=== PATIENT | male | born 1935 | race Caucasian/White ===

== ENCOUNTER → 2019-03-24 | Outpatient (CLI) | payer OTHER, BC ==
[2016-01-18 13:00] VITALS: BP 93/53
[~2019-03-24] MED LIST: ALLO300T PO; ATOR20TA58 PO; BUPIVACAINE MPF 0.25% 10 ML VIAL. ONE; CHOL200044 PO; FINA5TAB4 PO; FOLI1TAB16 PO; GLIP2.5T4 PO; LEVO100T5 PO; MELA3TAB2 PO; NAPR-514 PO; NAPR220C4 PO; RAMI10CA53 PO; methylPREDNISolone ACETATE 40 MG/ML VIAL. ONE
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
== END ==
LOC: PNCL 09:41
PROVIDERS: ATTEND Anesthesiology
DX: M79.18 Myalgia, other site (principal); M51.34 Other intervertebral disc degeneration, thoracic region; E11.9 Type 2 diabetes mellitus without complications; I10 Essential (primary) hypertension; Z87.891 Personal history of nicotine dependence; Z98.42 Cataract extraction status, left eye; Z98.41 Cataract extraction status, right eye; Z98.890 Other specified postprocedural states; Z88.0 Allergy status to penicillin; Z96.1 Presence of intraocular lens; Z79.84 Long term (current) use of oral hypoglycemic drugs
CPT/HCPCS: 20553; J1030; J3490

== ENCOUNTER → 2019-04-08 | Outpatient (CLI) | payer OTHER, BC ==
[2016-01-18 13:00] VITALS: BP 93/53
[~2019-04-08] MED LIST changes: +TRAM50TA PO
--- NOTE | 2019-04-08 09:12 | PAIN ---
DATE OF SERVICE: 04/08/2019 DIAGNOSES: 1. Myofascial pain. 2. Thoracic degenerative disk disease. HISTORY OF PRESENT ILLNESS: The patient is an 83-year-old male who returns for followup status post trigger point injections, last seen on 03/24/2019. The patient did very well with about 80% improvement until the last week. The pain again returned, he reports upper back, neck and shoulders, more on the right than the left, also in the mid back and low back, more on the left side and the mid low back. The patient reports pain is 8 on a scale of 10 at its worst over the past week, 7 on average, 2 at its least and is a 3 today. The patient reports sharp, constant, radiating, aching, worse with activity. Initially was increasing activity with greater ease and comfort, traveling with better greater ease, where he was bowling and been sleeping in bed until the last few days. He is back on his couch. The patient reports activity is aggravating the pain, but only over the past week or so. PHYSICAL EXAMINATION: VITAL SIGNS: Today, the patient's blood pressure 111/65, pulse 85, respirations 16, temperature is 98.0 degrees Fahrenheit, height 6 feet, weight 222 pounds. GENERAL: The patient is awake, alert, oriented, appropriate, very pleasant demeanor. HEENT: Head is normocephalic, atraumatic. Extraocular movements are intact and symmetrical. The patient wears eye glasses. Oral cavity: Mucous membranes moist and pink. Dentition is intact. NECK: Shows anterior throat supple without palpable lymphadenopathy noted. Swallow reflex symmetrical. CHEST: Shows normal on inspection. Breath sounds are clear to auscultation bilaterally. HEART: Shows S1, S2 clear. No murmurs auscultated. ABDOMEN: Soft, nontender, nondistended. No palpable organomegaly is noted. No rebound or guarding demonstrated. BACK: Shows spine grossly in the midline. Normal appearing thoracic kyphosis and some minor flattening of lumbar lordotic curvature. The patient's back shows moderate tenderness with palpation in the inferior cervical paraspinous musculature, superior medial trapezius, lateral trapezius on the right and the medial trapezius on the left, with very firm rope-like musculature consistent with trigger point areas of muscle in these areas, also into the right rhomboid as well as the thoracic paraspinous musculature, more on the right than the left, but present bilaterally and at the upper lumbar paraspinous musculature on the right side, very firm rope-like musculature as well without specific radiation, but very firm, very tender and very easily palpable and very uncomfortable with palpation bilaterally consistent with trigger point areas of musculature. EXTREMITIES: The patient's upper extremities show deep tendon reflexes 2+ in the biceps, triceps tendons. Motor exam is strong with matte cutter strength rated at 5/5, as is bicep and tricep flexion. Lower extremities show deep tendon reflexes 1+ in the patellar and tendo-calcaneus tendons. Motor exam is strong with 5/5 dorsiflexion and extension. Peripheral pulses are 2+ radial, 1+ posterior tibial. Options were discussed with the patient. The patient's old chart was reviewed as his current medication regimen updated. Current review of systems updated today as well. We will proceed with trigger point injections of the identified musculature. Risks were again discussed including, but not limited to bleeding, infection, possibility of intravascular injection sequelae, spread of local anesthetic and numbness, pneumothorax, side effects of steroid medication as well as poor results regarding pain control. The patient understands and wished to proceed. The patient will return to clinic in approximately 2 weeks for followup, was counseled on return appointment, activity level and side effects to be aware of. DIAGNOSIS: Myofascial pain. PROCEDURE: Trigger point injections, bilateral trapezius, bilateral rhomboid musculature, bilateral thoracic paraspinous musculature and bilateral lumbar paraspinous musculature under sterile prep and drape using local anesthetic. MEDICATION INJECTED: A total of 40 mg Depo-Medrol, plus 14 mL 0.25% bupivacaine after negative aspiration at each injection site. CONDITION AT DISCHARGE: Stable. The patient tolerated the procedure well and had no complications. ALBERT JEAN-BAPTISTE MD DR: SHAW/marsha JOB#: [id number] / [id number]
== END ==
LOC: PNCL 07:52
PROVIDERS: ATTEND Anesthesiology
DX: M79.18 Myalgia, other site (principal); M51.34 Other intervertebral disc degeneration, thoracic region
CPT/HCPCS: 20553; J1030; J3490

== ENCOUNTER 2019-04-28 12:40 | Inpatient (IN) | payer BC, MEDICARE ==
[~2019-04-28] VITALS: Ht 182.9 cm; Wt 94.1 kg
[~2019-04-28 12:40] MED LIST changes: -BUPIVACAINE MPF 0.25% 10 ML VIAL. ONE; -methylPREDNISolone ACETATE 40 MG/ML VIAL. ONE
[2019-04-28] MEDS ORDERED: IV NORMAL SALINE 1000ML BAG 1,000 ML IV ONE ×3 (13:00→15:30)
[2019-04-28 13:03] LABS: BASO # 0.1 x10^3/uL (0.0-0.2); BASO % 1 % (0-3); EOS # 0.3 x10^3/uL (0.0-0.7); EOS % 3 % (0-3); HEMATOCRIT 39.8 % (39.0-53.0); HEMOGLOBIN 13.2 g/dL (13.0-17.5); LYMPH % 32 % (24-48); MEAN CORPUSCULAR HEMOGLOBIN 34 pg (25-35); MEAN CORPUSCULAR HGB CONC 33 g/dL (31-37); MEAN CORPUSCULAR VOLUME 101 fL (79-100); MONO # 0.6 x10^3/uL (0.0-1.1); MONO % 7 % (0-9); NEUT # 5.3 x10^3/uL (1.8-7.7); NEUT % 57 % (31-73); PLATELET COUNT 165 x10^3/uL (140-400); RED BLOOD COUNT 3.93 x10^6/uL (4.30-5.70); WHITE BLOOD COUNT 9.3 x10^3/uL (4.0-11.0)
--- NOTE | 2019-04-28 13:07 | RAD ---
EXAM: Chest, single view. HISTORY: Chest pain. COMPARISON: None. FINDINGS: A single view of the chest is obtained. There is no infiltrate, pleural effusion or pneumothorax. The heart is normal in size. IMPRESSION: No acute pulmonary finding. Electronically signed by: Jodi Leung MD (04/28/2019 1:04 PM) [place] [id number]
[2019-04-28 13:10] LABS: PROTHROMBIN TIME PATIENT 16.5 SEC (11.7-14.0)
[2019-04-28 13:11] LABS: CALCIUM 8.5 mg/dL (8.5-10.1); CREATININE 1.7 mg/dL (0.7-1.3); GFR 38.6; POTASSIUM 4.1 mmol/L (3.5-5.1)
[2019-04-28 13:15] LABS: ALBUMIN 3.2 g/dL (3.4-5.0); MAGNESIUM 1.8 mg/dL (1.8-2.4); TOTAL BILIRUBIN 0.5 mg/dL (0.2-1.0); TOTAL PROTEIN 6.3 g/dL (6.4-8.2)
--- NOTE | 2019-04-28 13:32 | RAD ---
EXAM: Head and cervical spine CT without contrast. HISTORY: Syncope. TECHNIQUE: Computed tomographic images of the head and cervical spine were obtained without contrast. *One or more of the following individualized dose reduction techniques were utilized for this examination: 1. Automated exposure control. 2. Adjustment of the mA and/or kV according to patient size. 3. Use of iterative reconstruction technique. COMPARISON: None. FINDINGS: Head: There is no hemorrhage. There is no mass effect or midline shift. There is no hydrocephalus. There is mild age-appropriate cerebral volume loss. There is mild decreased attenuation within the cerebral white matter, likely due to chronic small vessel disease. There is a suspected chronic left lamina appreciable fracture. There is evidence of lens surgery. There is fluid within the inferior right mastoid air cells. No suspicious calvarial lesion is seen. 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 There is slightly calcified soft tissue pannus surrounding the odontoid. This contributes to mild central canal stenosis at this level. There is degenerative endplate remodeling with disc space narrowing, osteophytosis and facet arthropathy throughout the cervical an upper thoracic spine. No acute fracture is seen. There are surgical clips within the neck. There is a small amount of soft tissue gas within the anterior neck likely due to recent peripheral catheterization. The combination of disc bulges with disc protrusions or disc osteophyte complexes and facet and uncovertebral arthropathy results in mild central canal stenosis at C2-C3, moderate to severe right and mild to moderate left foraminal and moderate to severe central canal stenosis at C3-C4, moderate bilateral foraminal and moderate to severe central canal stenosis at C5-C6, and severe left foraminal and moderate central canal stenosis at C6-C7. IMPRESSION: 1. No acute intracranial finding. There are subtle areas of hypodensity within the cerebral white matter, likely due to chronic small vessel disease. 2. 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 The combination of this finding and surrounding pannus contributes to mild central canal stenosis at this level. No acute fracture is seen. 3. Severe multilevel degenerative change throughout the cervical spine, resulting in significant foraminal and central canal stenosis at the aforementioned levels. Electronically signed by: Jodi Leung MD (04/28/2019 1:30 PM) [place] [id number]
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
--- NOTE | 2019-04-28 13:44 | EKG ---
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
[2019-04-28] MEDS ORDERED: ONDANSETRON PF 4 MG/2 ML VIAL. IV PRN (14:00)
[2019-04-28] MEDS ORDERED: traMADol 50 MG TABLET PO PRN (15:30)
[2019-04-28] MEDS ORDERED: DEXTROSE 50% 25 GM / 50ML DISP.SYRIN. IV PRN (15:30)
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
[2019-04-28 15:57] LABS: CHOLESTEROL/HDL RATIO 3.2
[2019-04-28 16:55] VITALS: BP 151/93
[2019-04-28] MEDS: INSULIN LISPRO 300 UNITS/3 ML INSULN.PEN. SQ SCH (17:00)
--- NOTE | 2019-04-28 17:17 | CARD ---
MR#: [id number] Date of Study: 04/28/2019 Ordering Physician: PHYLLIS MEZA, Referring Physician: MATEO CALLAHAN, Tech: Becca Sorensen APPROVED REPORT EXAM: Two-dimensional and M-mode echocardiogram with Doppler and color Doppler. Other Information Quality : AverageHR: 102bpm INDICATION Atrial Fibrillation Chest Pain Syncope Elevated Troponin RISK FACTORS Hypertension Hyperlipidemia 2D DIMENSIONS RVDd3.7 (2.9-3.5cm)Left Atrium(2D)3.3 (1.6-4.0cm) IVSd1.3 (0.7-1.1cm)Aortic Root(2D)3.7 (2.0-3.7cm) LVDd5.0 (3.9-5.9cm)LVOT Diameter2.2 (1.8-2.4cm) PWd1.3 (0.7-1.1cm)LVDs3.6 (2.5-4.0cm) FS (%) 27.7 %SV63.5 ml LVEF(%)53.4 (>50%) Aortic Valve AoV Peak Armando.104.2cm/sAoV VTI17.5cm AO Peak GR.4.3mmHgLVOT VTI 10.11cm AO Mean GR.3mmHgAI P 1/2 [id number] Mitral Valve MV E Mlqukocr94.2cm/sMV DECEL CSAF925gi MV A Itytbubt58.6cm/sE/A Ratio0.6 TDI Lateral E' P. V6.18cm/sMedial E' P. V5.79cm/s E/Lateral E'6.8E/Medial E'7.3 Tricuspid Valve TR P. Rpisygcj422tq/sRAP [id number] TR Peak Gr.40wqDmPOVN12ynZb Pulmonary Vein S1 Wysxboyt14.8cm/sS2 Tmhrzfmu32.47cm/s D2 Tuigkjun93.5cm/sPVa [id number] LEFT VENTRICLE The left ventricle is normal size. There is mild concentric left ventricular hypertrophy. The left ve ntricular systolic function is normal. The ejection fraction is 55-60%. There is normal LV segmental wall motion. Transmitral Doppler flow pattern is Grade I-abnormal relaxation pattern. RIGHT VENTRICLE The right ventricle is borderline dilated. There is normal right ventricular wall thickness. Systolic function is borderline reduced. ATRIA The left atrium is borderline dilated. The right atrium size is normal. The interatrial septum is int act with no evidence for an atrial septal defect or patent foramen ovale as noted on 2-D or Doppler i maging. AORTIC VALVE The aortic valve is thickened but opens well. Doppler and Color Flow revealed trace to mild aortic re gurgitation. There is no significant aortic valvular stenosis. MITRAL VALVE The mitral valve is thickened but opens well. There is no evidence of mitral valve prolapse. There is no mitral valve stenosis. Doppler and Color-flow revealed trace mitral regurgitation. TRICUSPID VALVE The tricuspid valve is normal in structure and function. Doppler and Color Flow revealed trace tricus pid regurgitation with an estimated PAP of 41 mmHg. There is no tricuspid valve stenosis. PULMONIC VALVE The pulmonary valve is normal in structure and function. Doppler and Color Flow revealed trace to mil d pulmonic valvular regurgitation. GREAT VESSELS The aortic root is normal in size. The IVC is dilated and collapses >50% with inspiration. PERICARDIAL EFFUSION There is small left pleural effusion. There is no evidence of significant pericardial effusion. Critical Notification Critical Value: No <Conclusion> The left ventricle is normal size. The left ventricular systolic function is normal. The ejection fraction is 55-60%. There is mild concentric left ventricular hypertrophy. There is no significant aortic valvular stenosis. Doppler and Color Flow revealed trace to mild aortic regurgitation. Doppler and Color-flow revealed trace mitral regurgitation. Doppler and Color Flow revealed trace tricuspid regurgitation with an estimated PAP of 41 mmHg. Signed by : Philip Venegas MD Electronically Approved : 04/28/2019 17:17:20
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
--- NOTE | 2019-04-28 18:30 | NUR ---
Spoke with Dr. Raza regarding increased troponin level. New order to keep pt NPO after midnight. Do not call Dr. Raza with next troponin reading as Dr. Raza explains it will be elevated. Dr. Raza to see pt in AM. Voiced understanding.
[2019-04-28] MEDS: NAPROXEN 500 MG TABLET PO SCH (18:33)
[2019-04-28] MEDS: ENOXAPARIN 40 MG/0.4 ML SYRINGE. SQ SCH (18:34)
[2019-04-28 19:00] VITALS: BP 155/71
--- NOTE | 2019-04-28 19:36 | NUR ---
Patient has not urinated since arrival--bladder scanned at 192. Patient has 671 cc of urine in bladder but does not feel the urge to urinate. Patient states he is OK with a catheter--he has had one before.
[2019-04-28 20:22] VITALS: BP 158/93
[2019-04-28 20:29] VITALS: BP_SYST 111; BP_SYST 156; BP_DIAS 65; BP_DIAS 73
[2019-04-28] MEDS ORDERED: NON FORMULARY ITEM (Melatonin 5 MG) PO SCH (21:00)
[2019-04-28] MEDS: ATORVASTATIN CALCIUM 20 MG TABLET PO SCH (21:34)
[2019-04-28 22:31] VITALS: BP 146/71
[2019-04-29] VITALS (15 sets, daily range): BP systolic 95–160; BP diastolic 59–85
[2019-04-29 04:27] LABS: BASO # 0.1 x10^3/uL (0.0-0.2); BASO % 1 % (0-3); EOS # 0.2 x10^3/uL (0.0-0.7); EOS % 3 % (0-3); HEMATOCRIT 36.7 % (39.0-53.0); HEMOGLOBIN 12.4 g/dL (13.0-17.5); LYMPH # 1.6 x10^3/uL (1.0-4.8); LYMPH % 21 % (24-48); MEAN CORPUSCULAR HEMOGLOBIN 34 pg (25-35); MEAN CORPUSCULAR HGB CONC 34 g/dL (31-37); MEAN CORPUSCULAR VOLUME 99 fL (79-100); MONO # 0.5 x10^3/uL (0.0-1.1); MONO % 7 % (0-9); NEUT # 5.2 x10^3/uL (1.8-7.7); NEUT % 69 % (31-73); PLATELET COUNT 120 x10^3/uL (140-400); RED BLOOD COUNT 3.69 x10^6/uL (4.30-5.70); RED CELL DISTRIBUTION WIDTH 15.2 % (11.5-14.5); WHITE BLOOD COUNT 7.6 x10^3/uL (4.0-11.0)
[2019-04-29 04:52] LABS: ALBUMIN/GLOBULIN RATIO 0.9 (1.0-1.7); CALCIUM 8.4 mg/dL (8.5-10.1); CREATININE 1.4 mg/dL (0.7-1.3); GFR 48.3; POTASSIUM 4.4 mmol/L (3.5-5.1); TOTAL BILIRUBIN 0.4 mg/dL (0.2-1.0); TOTAL PROTEIN 6.3 g/dL (6.4-8.2)
[2019-04-29] MEDS: NAPROXEN 500 MG TABLET PO SCH ×2 (08:00→17:18)
[2019-04-29] MEDS: INSULIN LISPRO 300 UNITS/3 ML INSULN.PEN. SQ SCH ×3 (08:00→17:21)
[2019-04-29] MEDS: glipiZIDE ER 2.5 MG TAB.ER.24 PO SCH (08:41)
[2019-04-29] MEDS: LEVOTHYROXINE 100 MCG TABLET PO SCH (08:43)
--- NOTE | 2019-04-29 12:09 | PDOC ---
[employer] PROGRESS NOTE Chief Complaint Chief Complaint Chest pain Syncope Hypotension Hyperlipidemia Hypothyroidism BPH History of Present Illness History of Present Illness 04/29/19 Pt seen and examined Acute NC Troponin trending up (0.503, 1.840, 3.547) Alfonso TOURE Vitals/I&O Vitals/I&O: Vital Signs Date Time Temp Pulse Resp B/P (MAP) Pulse Ox O2 Delivery O2 Flow Rate FiO2 04/29/19 11:00 97.6 87 18 156/80 (105) 95 Nasal Cannula 1.0 97.6 I & O 04/28/19 04/28/19 04/29/19 14:59 22:59 06:59 Intake Total 2000 ml 1100 ml 200 ml Output Total 800 ml 450 ml Balance 2000 ml 300 ml -250 ml Physical Exam General: Alert, Oriented X3, Cooperative, No acute distress Heart: Regular rate, Normal S1, Normal S2, Other (SR/ST with PACs, 2/6 systolic murmur) Lungs: Clear Abdomen: Soft, No tenderness Extremities: No cyanosis, No edema, Normal pulses Skin: No breakdown, No significant lesion Labs Labs: Laboratory Tests Test 04/28/19 12:50 04/28/19 17:45 04/28/19 18:04 04/28/19 21:36 White Blood Count 9.3 x10^3/uL (4.0-11.0) Red Blood Count 3.93 x10^6/uL (4.30-5.70) Hemoglobin 13.2 g/dL (13.0-17.5) Hematocrit 39.8 % (39.0-53.0) Mean Corpuscular Volume 101 fL (79-100) Mean Corpuscular Hemoglobin 34 pg (25-35) Mean Corpuscular Hemoglobin Concent 33 g/dL (31-37) Red Cell Distribution Width 15.0 % (11.5-14.5) Platelet Count 165 x10^3/uL (140-400) Neutrophils (%) (Auto) 57 % (31-73) Lymphocytes (%) (Auto) 32 % (24-48) Monocytes (%) (Auto) 7 % (0-9) Eosinophils (%) (Auto) 3 % (0-3) Basophils (%) (Auto) 1 % (0-3) Neutrophils # (Auto) 5.3 x10^3/uL (1.8-7.7) Lymphocytes # (Auto) 3.0 x10^3/uL (1.0-4.8) Monocytes # (Auto) 0.6 x10^3/uL (0.0-1.1) Eosinophils # (Auto) 0.3 x10^3/uL (0.0-0.7) Basophils # (Auto) 0.1 x10^3/uL (0.0-0.2) Prothrombin Time 16.5 SEC (11.7-14.0) Prothromb Time International Ratio 1.4 (0.8-1.1) Sodium Level 142 mmol/L (136-145) Potassium Level 4.1 mmol/L (3.5-5.1) Chloride Level 106 mmol/L (98-107) Carbon Dioxide Level 16 mmol/L (21-32) Anion Gap 20 (6-14) Blood Urea Nitrogen 28 mg/dL (8-26) Creatinine 1.7 mg/dL (0.7-1.3) Estimated GFR (Cockcroft-Gault) 38.6 BUN/Creatinine Ratio 16 (6-20) Glucose Level 323 mg/dL (70-99) Calcium Level 8.5 mg/dL (8.5-10.1) Magnesium Level 1.8 mg/dL (1.8-2.4) Total Bilirubin 0.5 mg/dL (0.2-1.0) Aspartate Amino Transf (AST/SGOT) 22 U/L (15-37) Alanine Aminotransferase (ALT/SGPT) 34 U/L (16-63) Alkaline Phosphatase 87 U/L (46-116) Creatine Kinase 46 U/L (39-308) Troponin I Quantitative 0.503 ng/mL (0.000-0.055) 1.840 ng/mL (0.000-0.055) TV-Rry-Q-Type Natriuretic Peptide 423 pg/mL (0-449) Total Protein 6.3 g/dL (6.4-8.2) Albumin 3.2 g/dL (3.4-5.0) Albumin/Globulin Ratio 1.0 (1.0-1.7) Triglycerides Level 116 mg/dL (0-150) Cholesterol Level 105 mg/dL (0-200) LDL Cholesterol, Calculated 49 mg/dL (0-100) VLDL Cholesterol, Calculated 23 mg/dL (0-40) Non-HDL Cholesterol Calculated 72 mg/dL (0-129) HDL Cholesterol 33 mg/dL (40-60) Cholesterol/HDL Ratio 3.2 Lipase 76 U/L (73-393) Thyroid Stimulating Hormone (TSH) 3.408 uIU/mL (0.358-3.74) Glucose (Fingerstick) 126 mg/dL (70-99) 158 mg/dL (70-99) Test 04/29/19 00:00 04/29/19 04:10 04/29/19 07:35 Troponin I Quantitative 3.547 ng/mL (0.000-0.055) White Blood Count 7.6 x10^3/uL (4.0-11.0) Red Blood Count 3.69 x10^6/uL (4.30-5.70) Hemoglobin 12.4 g/dL (13.0-17.5) Hematocrit 36.7 % (39.0-53.0) Mean Corpuscular Volume 99 fL (79-100) Mean Corpuscular Hemoglobin 34 pg (25-35) Mean Corpuscular Hemoglobin Concent 34 g/dL (31-37) Red Cell Distribution Width 15.2 % (11.5-14.5) Platelet Count 120 x10^3/uL (140-400) Neutrophils (%) (Auto) 69 % (31-73) Lymphocytes (%) (Auto) 21 % (24-48) Monocytes (%) (Auto) 7 % (0-9) Eosinophils (%) (Auto) 3 % (0-3) Basophils (%) (Auto) 1 % (0-3) Neutrophils # (Auto) 5.2 x10^3/uL (1.8-7.7) Lymphocytes # (Auto) 1.6 x10^3/uL (1.0-4.8) Monocytes # (Auto) 0.5 x10^3/uL (0.0-1.1) Eosinophils # (Auto) 0.2 x10^3/uL (0.0-0.7) Basophils # (Auto) 0.1 x10^3/uL (0.0-0.2) Sodium Level 141 mmol/L (136-145) Potassium Level 4.4 mmol/L (3.5-5.1) Chloride Level 107 mmol/L (98-107) Carbon Dioxide Level 24 mmol/L (21-32) Anion Gap 10 (6-14) Blood Urea Nitrogen 28 mg/dL (8-26) Creatinine 1.4 mg/dL (0.7-1.3) Estimated GFR (Cockcroft-Gault) 48.3 BUN/Creatinine Ratio 20 (6-20) Glucose Level 141 mg/dL (70-99) Calcium Level 8.4 mg/dL (8.5-10.1) Total Bilirubin 0.4 mg/dL (0.2-1.0) Aspartate Amino Transf (AST/SGOT) 23 U/L (15-37) Alanine Aminotransferase (ALT/SGPT) 31 U/L (16-63) Alkaline Phosphatase 72 U/L (46-116) Total Protein 6.3 g/dL (6.4-8.2) Albumin 3.0 g/dL (3.4-5.0) Albumin/Globulin Ratio 0.9 (1.0-1.7) Glucose (Fingerstick) 151 mg/dL (70-99) Review of Systems Review of Systems: CO chest pain CO weakness Assessment and Plan Assessmemt and Plan Problems Medical Problems: (1) Acute diastolic congestive heart failure Status: Acute (2) Acute kidney injury superimposed on CKD Status: Acute (3) Atrial fibrillation Status: Acute (4) Chest pain Status: Acute (5) Dehydration Status: Acute (6) DM2 (diabetes mellitus, type 2) Status: Chronic (7) HLD (hyperlipidemia) Status: Chronic (8) Hypothyroidism Status: Chronic (9) NSTEMI (non-ST elevated myocardial infarction) Status: Acute (10) Syncope and collapse Status: Acute 04/29/19 Assessment Chest pain Syncope Hypotension Hyperlipidemia Hypothyroidism BPH Plan Cardiac cath today Cardiac monitoring Serial enzymes Serial EKGs Home meds DVT prophylaxis Full code Total time 31 min Comment Review of Relevant I have reviewed the following items lali (where applicable) has been applied. Medications: Current Medications Medications (Trade) Dose Ordered Sig/Bertha Route PRN Reason Start Time Stop Time Status Last Admin Dose Admin Sodium Chloride 1,000 ml @ 1,000 mls/hr 1X ONCE IV 04/28/19 13:00 04/28/19 13:59 DC 04/28/19 12:58 Sodium Chloride 1,000 ml @ 1,000 mls/hr 1X ONCE IV 04/28/19 13:45 04/28/19 14:44 DC 04/28/19 13:50 Atorvastatin Calcium (Lipitor) 20 mg QHS PO 04/28/19 21:00 04/28/19 21:34 Levothyroxine Sodium (Synthroid) 100 mcg DAILY06 PO 04/29/19 06:00 04/29/19 08:43 Naproxen (Naprosyn) 500 mg BIDWMEALS PO 04/28/19 17:00 04/28/19 18:33 Enoxaparin Sodium (Lovenox 40mg Syringe) 40 mg Q24H SQ 04/28/19 18:00 04/28/19 18:34 KATHE NOVAK III DO Apr 29, 2019 12:09
[2019-04-29] MEDS ORDERED: HEPARIN for IV BOLUS 10,000 UNIT/10 ML VIAL. ONE (12:44)
[2019-04-29] MEDS ORDERED: VERAPAMIL 5 MG/2 ML VIAL. ONE (12:44)
[2019-04-29] MEDS ORDERED: MIDAZOLAM HCL/PF 2 MG/2 ML VIAL. ONE (12:44)
[2019-04-29] MEDS ORDERED: NITROGLYCERIN 200 MCG/2 ML SYRINGE FOR CATH/VASC LAB. ONE (12:44)
[2019-04-29] MEDS ORDERED: fentaNYL PF VIAL 100 MCG/2 ML VIAL ONE (12:44)
[2019-04-29] MEDS ORDERED: BIVALIRUDIN 250 MG VIAL. IV ONE ×2 (13:07→13:30)
[2019-04-29] MEDS ORDERED: IODIXANOL 320 MG/ML 100 ML VIAL. ONE ×2 (13:16→13:45)
[2019-04-29] MEDS ORDERED: fentaNYL PF VIAL 100 MCG/2 ML VIAL IV ONE (13:30)
[2019-04-29] MEDS ORDERED: MIDAZOLAM HCL/PF 2 MG/2 ML VIAL. IV ONE (13:30)
[2019-04-29] MEDS ORDERED: VERAPAMIL 5 MG/2 ML VIAL. IART ONE (13:30)
[2019-04-29] MEDS ORDERED: IODIXANOL 320 MG/ML 100 ML VIAL. IART ONE (13:30)
[2019-04-29] MEDS ORDERED: HEPARIN for IV BOLUS 10,000 UNIT/10 ML VIAL. IART ONE (13:30)
[2019-04-29] MEDS ORDERED: LIDOCAINE 1% Multi-Dose 20 ML VIAL. INJ ONE (13:30)
[2019-04-29] MEDS ORDERED: NITROGLYCERIN 200 MCG/2 ML SYRINGE FOR CATH/VASC LAB. IART ONE (13:30)
[2019-04-29] MEDS ORDERED: ASPIRIN 325 MG TABLET ONE (13:59)
[2019-04-29] MEDS ORDERED: CLOPIDOGREL BISULFATE 75 MG TABLET ONE (13:59)
[2019-04-29] MEDS ORDERED: ASPIRIN 325 MG TABLET PO ONE (14:15)
[2019-04-29] MEDS ORDERED: CLOPIDOGREL BISULFATE 75 MG TABLET PO ONE (14:15)
[2019-04-29] MEDS ORDERED: IV 1/2 NORMAL SALINE 1,000 ML IV SCH (14:35)
--- NOTE | 2019-04-29 14:35 | PDOC ---
MODERATE SEDATION ASSESSMENT RISKS/ALTERNATIVES Risks/Alternatives Risks and alternatives of this type of sedation and procedure discussed with: RISK/ALTERNATIVES: Patient H & P ON CHART H & P H & P on chart and reviewed for co-morbid conditions and appropriate labs. H&P ON CHART: Yes STATUS PREG STATUS ASSESSED: N/A MEDS/ALLERGIES REVIEWED Meds/Allergies Reviewed Medications and Allergies including time and route of recently administered narcotics and sedatives. MEDS/ALLERGIES REVIEWED: Yes ASA RATING ASA RATING: III AIRWAY ASSESSMENT Airway Assessment Airway patency, oral function limitations, presence of caps, crowns, dentures, partials, and ability to extend neck assessed. AIRWAY ASSESSMENT: Yes MALLAMPATI SCORE MALLAMPATI SCORE: II PRE-SEDATION ASSESSMENT PRE-SEDATION ASSESSMENT: Yes DEON RICE MD Apr 29, 2019 14:35
[2019-04-29] MEDS ORDERED: NITROGLYCERIN SUBLINGUAL 0.4 MG BOTTLE OF 25. SL PRN (14:45)
[2019-04-29] MEDS ORDERED: 0.9 % SODIUM CHLORIDE 10 ML DISP.SYRIN. IV PRN (14:45)
[2019-04-29] MEDS ORDERED: ACETAMINOPHEN 325 MG TABLET. PO PRN (14:45)
--- NOTE | 2019-04-29 14:47 | CARD ---
MR#: [id number] Date of Study: 04/29/2019 Ordering Physician: DEON RICE, Referring Physician: MATEO CALLAHAN Tech: Payal Downing APPROVED REPORT Technologist: Payal Downing Nurse: Brit Smith R.N. Procedure(s) performed: 1. Left heart catheterization and selective coronary angiography via right t ransradial approach 2. Successful PCI/drug eluting stents placement to the left anterior descending artery, left circumf venu artery and the left posterior descending branch. fl time: 23.4 mins dose: 185 gy/cm2 contrast: 265 ml sedation: 80 MINS INDICATION The indication(s) include : non-STEMI . CS Clinical Frailty Scale [facility] Clinical Frailty Scale: Mildly Frail Heart Failure Heart Failure: No PROCEDURE NARRATIVE After explaining the risks, benefits and alternative options, informed consent was obtained from makayla ent. Patient was brought to the cardiac Clean Out Driller Helper and right wrist was prepped and draped in the usual fashion after confirming a positive modified Sebastien's test. Arterial access was obtained in the righ t radial artery and a 6 Tunisian sheath was inserted. 6 Tunisian [place] and 6 Tunisian JR4 catheters were used to perform selective angiography of the left and right coronary arteries. LVEDP and transaortic gradients were measured. Left ventriculography was not performed due to contrast load used for the in tervention. Patient tolerated the procedure well. Hemostasis was achieved using TR band. There were no immediate complications. The following findings were noted. FINDINGS 1. Hemodynamics: Left ventricular end-diastolic pressure of 25 mmHg. No pullback gradient across th e aortic valve. 2. Coronary angiography: a. The left main coronary artery arose from the left sinus of Valsalva, gave rise to the left anteri or descending and left circumflex arteries and did not show any significant stenosis. b. The left anterior descending artery showed 80% stenosis in the midsegment. c. The left circumflex artery was a large and codominant vessel that showed 70-80% stenosis in the m idsegment. The left posterior descending branch showed 90% stenosis in the proximal segment. d. The right coronary artery was a small to medium caliber codominant vessel that showed 80% stenosi s in the midsegment. INTERVENTION The left main coronary artery was engaged with a 6 Tunisian XB 3.5 guide catheter and the stenosis in t he midsegment of the left anterior descending artery was crossed with a 0.014 inch SmarterShade Pro water gu idewire. This was predilated with a 3.0 x 12 mm trek balloon following which this was successfully tr eated with a 3.5 x 12 mm Xience Juli drug-eluting stent. Subsequently, the lesions in the midsegmen t of the left circumflex artery and the proximal segment of the left posterior descending branch were crossed with the same guidewire. These were predilated with a 2.5 x 15 mm trek balloon following whi ch the left PDA was treated with a 2.5 x 18 mm Xience Juli drug-eluting stent and the midsegment of the left circumflex artery was treated with a 3.0 x 18 mm Xience Juli drug-eluting stent. Final an giography showed resolution of all the stenoses to 0% with KASSANDRA-3 distal flow. Patient tolerated the procedure well. Hemostasis was achieved using TR band. There were no immediate complications. PCI Technique Lesion Percutaneous coronary intervention was performed on the mid left anterior descending artery segment. KASSANDRA Flow KASSANDRA Flow (Pre-Intervention): KASSANDRA-3 KASSANDRA Flow (Post-Intervention): KASSANDRA-3 PCI Technique Lesion 2 Percutaneous Coronary Intervention was performed on the left posterior descending artery. KASSANDRA Flow KASSANDRA Flow (Pre-Intervention): KASSANDRA-2 KASSANDRA Flow (Post-Intervention): KASSANDRA-3 PCI Technique Lesion 3 Percutaneous Coronary Intervention was performed on the mid left circumflex artery segment. KASSANDRA Flow KASSANDRA Flow (Pre-Intervention): KASSANDRA-3 KASSANDRA Flow (Post-Intervention): KASSANDRA-3 Conclusion 1. Three-vessel coronary artery disease, probably a poor candidate for CABG based on age, comorbidit ies and absence of good distal targets. 2. Successful PCI/drug eluting stents placement to the left anterior descending artery, left circumf venu artery and the left posterior descending branch Recommendations 1. Aspirin 325 mg daily 2. Plavix 75 mg daily for preferably one year 3. Cardiovascular risk factor modification 4. If patient continues to be symptomatic, we will consider PCI/stent placement to the small to medi um caliber codominant right coronary artery stenosis. Signed by : Deon Rice, Electronically Approved : 04/29/2019 14:47:09
[2019-04-29] MEDS: FOLIC ACID 1 MG TABLET. PO SCH (15:03)
[2019-04-29] MEDS: ALLOPURINOL 300 MG TABLET. PO SCH (15:03)
[2019-04-29] MEDS: FINASTERIDE 5 MG TABLET. PO SCH (15:03)
[2019-04-29] MEDS: ENOXAPARIN 40 MG/0.4 ML SYRINGE. SQ SCH (15:20)
--- NOTE | 2019-04-29 15:55 | NUR ---
SS following for discharge planning. SS reviewed pt chart. Pt is from home with spouse and is currently on room air. No discharge needs noted at this time. SS will continue to follow for discharge planning.
[2019-04-29] MEDS: ATORVASTATIN CALCIUM 20 MG TABLET PO SCH (21:40)
[2019-04-29] MEDS: METOPROLOL TART IMMED RELEASE 25 MG TABLET. PO SCH (21:40)
[2019-04-30 00:07] LABS: HEMOGLOBIN A1C 7.2 % (4.8-5.6)
[2019-04-30 03:30] VITALS: BP 128/66
[2019-04-30 04:20] LABS: BASO % 0 % (0-3); EOS # 0.2 x10^3/uL (0.0-0.7); EOS % 3 % (0-3); HEMATOCRIT 36.4 % (39.0-53.0); HEMOGLOBIN 12.3 g/dL (13.0-17.5); LYMPH # 1.4 x10^3/uL (1.0-4.8); LYMPH % 17 % (24-48); MEAN CORPUSCULAR HEMOGLOBIN 34 pg (25-35); MEAN CORPUSCULAR HGB CONC 34 g/dL (31-37); MEAN CORPUSCULAR VOLUME 99 fL (79-100); MONO # 0.6 x10^3/uL (0.0-1.1); MONO % 7 % (0-9); NEUT % 73 % (31-73); PLATELET COUNT 117 x10^3/uL (140-400); RED BLOOD COUNT 3.67 x10^6/uL (4.30-5.70); RED CELL DISTRIBUTION WIDTH 14.9 % (11.5-14.5); WHITE BLOOD COUNT 8.2 x10^3/uL (4.0-11.0)
[2019-04-30 04:52] LABS: CALCIUM 8.3 mg/dL (8.5-10.1); CREATININE 1.3 mg/dL (0.7-1.3); GFR 52.6; POTASSIUM 4.4 mmol/L (3.5-5.1)
[2019-04-30] MEDS: LEVOTHYROXINE 100 MCG TABLET PO SCH (05:58)
[2019-04-30 07:00] VITALS: BP 147/87
[2019-04-30] MEDS ORDERED: ASPIRIN ENTERIC COATED 325 MG TABLET.DR. PO SCH (08:00)
[2019-04-30] MEDS: NAPROXEN 500 MG TABLET PO SCH (08:00)
[2019-04-30] MEDS ORDERED: CLOPIDOGREL BISULFATE 75 MG TABLET PO SCH (08:00)
[2019-04-30] MEDS: glipiZIDE ER 2.5 MG TAB.ER.24 PO SCH (08:30)
[2019-04-30] MEDS: FINASTERIDE 5 MG TABLET. PO SCH (08:31)
[2019-04-30] MEDS: METOPROLOL TART IMMED RELEASE 25 MG TABLET. PO SCH (08:32)
[2019-04-30] MEDS: ALLOPURINOL 300 MG TABLET. PO SCH (08:32)
[2019-04-30] MEDS: FOLIC ACID 1 MG TABLET. PO SCH (08:33)
[2019-04-30] MEDS: INSULIN LISPRO 300 UNITS/3 ML INSULN.PEN. SQ SCH ×2 (08:38→12:45)
[2019-04-30 11:00] VITALS: BP 119/63
--- NOTE | 2019-04-30 11:22 | PDOC ---
SOHAIL MALDONADO TALENT ACQUISITION RELATIONSHIP MANAGER 04/30/19 1122: CARDIO Progress Notes Date and Time Date of Service 04/30/2019 Time of Evaluation 1115 Subjective Subjective: No Chest Pain, No shortness of breath, No Palpitations Vitals Vitals Vital Signs Date Time Temp Pulse Resp B/P (MAP) Pulse Ox O2 Delivery O2 Flow Rate FiO2 04/30/19 08:32 85 147/87 04/30/19 08:00 Room Air 04/30/19 07:00 97.3 18 95 97.3 04/29/19 11:00 1.0 Weight Weight [ ] Input and Output Intake and Output Intake and Output 04/30/19 07:00 Intake Total 800 ml Output Total 1775 ml Balance -975 ml Intake Oral 800 ml Output Urine Total 1775 ml Laboratory Labs Laboratory Tests Test 04/29/19 12:11 04/29/19 16:58 04/29/19 20:59 04/30/19 03:40 Glucose (Fingerstick) 141 mg/dL (70-99) 203 mg/dL (70-99) 150 mg/dL (70-99) White Blood Count 8.2 x10^3/uL (4.0-11.0) Red Blood Count 3.67 x10^6/uL (4.30-5.70) Hemoglobin 12.3 g/dL (13.0-17.5) Hematocrit 36.4 % (39.0-53.0) Mean Corpuscular Volume 99 fL (79-100) Mean Corpuscular Hemoglobin 34 pg (25-35) Mean Corpuscular Hemoglobin Concent 34 g/dL (31-37) Red Cell Distribution Width 14.9 % (11.5-14.5) Platelet Count 117 x10^3/uL (140-400) Neutrophils (%) (Auto) 73 % (31-73) Lymphocytes (%) (Auto) 17 % (24-48) Monocytes (%) (Auto) 7 % (0-9) Eosinophils (%) (Auto) 3 % (0-3) Basophils (%) (Auto) 0 % (0-3) Neutrophils # (Auto) 6.0 x10^3/uL (1.8-7.7) Lymphocytes # (Auto) 1.4 x10^3/uL (1.0-4.8) Monocytes # (Auto) 0.6 x10^3/uL (0.0-1.1) Eosinophils # (Auto) 0.2 x10^3/uL (0.0-0.7) Basophils # (Auto) 0.0 x10^3/uL (0.0-0.2) Sodium Level 142 mmol/L (136-145) Potassium Level 4.4 mmol/L (3.5-5.1) Chloride Level 108 mmol/L (98-107) Carbon Dioxide Level 24 mmol/L (21-32) Anion Gap 10 (6-14) Blood Urea Nitrogen 27 mg/dL (8-26) Creatinine 1.3 mg/dL (0.7-1.3) Estimated GFR (Cockcroft-Gault) 52.6 Glucose Level 153 mg/dL (70-99) Calcium Level 8.3 mg/dL (8.5-10.1) Test 04/30/19 07:32 Glucose (Fingerstick) 159 mg/dL (70-99) Physical Exam HEENT: Neck Supple W Full Motion Chest: Symmetric LUNGS: Clear to Auscultation Heart: S1S2, RRR (SR), no gallops, no murmurs Abdomen: Soft N/T Extremities: No Calf Tenderness Neurology: alert, oriented, follow commands Assessment Assessment 1. NSTEMI: S/P PCI/ARTI to LAD/LCx/PDA. EF preserved 2. Syncope: due to dehydration and orthostasis. No significant ectopies 3. Suspect CKD3 4. HTN: controlled 5. DM2/HLP Recommendations 1. ASA/plavix. Statin and low dose metoprolol 2. Maintain PO hydration. Prefer to go to SNU first but would like to go home. Arrange with home health 3. Cardiac rehab encouraged 4. If patient continues to be symptomatic, we will consider PCI/stent placement to the small to medium caliber codominant right coronary artery stenosis. 5. DC naproxen 6. Follow up in office as scheduled. 7. Compression stockings DEON RICE MD 04/30/19 2372: CARDIO Progress Notes Assessment Assessment Patient seen and examined. Agree with BEATER TENDER's assessment and plan. s/p PCI/ARTI to LAD and LCx yesterday, stable and chest pain-free. Telemetry did not show any further episodes of atrial fibrillation. Continue dual antiplatelet therapy. Plan for outpatient event monitor. SOHAIL MALDONADO APRN Apr 30, 2019 11:22 DEON RICE MD Apr 30, 2019 17:28
[2019-04-30 11:45] VITALS: BP 123/69
[2019-04-30 11:47] VITALS: BP 114/59
[2019-04-30 11:48] VITALS: BP 150/89
--- NOTE | 2019-04-30 12:26 | NUR ---
SS following up with discharge planning. OT recommending prison unit. SS met with pt and pt's spouse in room to discuss discharge planning and prison unit. Pt and pt's spouse both declined prison unit stating that pt will return to home. Pt and pt's spouse agreeable to home healthcare at discharge with [facility], ; fax [phone]. SS will continue to follow for discharge planning.
--- NOTE | 2019-04-30 14:43 | SNU/HH DC ---
DISCHARGE WITH HOME HEALTH DISCHARGE INFORMATION: Final Diagnosis: Problems Medical Problems: (1) Acute diastolic congestive heart failure Status: Acute (2) Acute kidney injury superimposed on CKD Status: Acute (3) Atrial fibrillation Status: Acute (4) BPH (benign prostatic hyperplasia) Status: Chronic (5) Chest pain Status: Acute (6) Dehydration Status: Acute (7) DM2 (diabetes mellitus, type 2) Status: Chronic (8) HLD (hyperlipidemia) Status: Chronic (9) Hypotension Status: Acute (10) Hypothyroidism Status: Chronic (11) NSTEMI (non-ST elevated myocardial infarction) Status: Acute (12) Syncope and collapse Status: Acute Condition on Discharge: Stable CODE STATUS: Code Status: Full HOME HEALTH: Face to Face: I certify this patient is under my care and that I, or a nurse practitioner or physician's respiratory care assistant working with me, had a face to face encounter that meets the physician face to face encounter requirements with this patient on []. Medical Complications: CHF RN For Eval/Treatment: Yes Physical Therapy For: Evalulation/Treatment Occupational Therapy For: Evaluation/Treatment Home Health Aide For: Self-care CASE CHECKER For: Community Resources Pt Meets Homebound Status: Poor coordination w/ amb. POST DISCHARGE ORDERS: Activity Instructions for Disc: Activity as tolerated DIET AFTER DISCHARGE: Cardiac CERTIFICATION STATEMENT: Certification Statement: Certification Statement: Based on the above finding, I certify that this patient is confined to the home and needs intermittent nursing home care, physical therapy and/or speech therapy, or continues to need occupational therapy.~ This patient is under my care, and I have initiated the establishment of the plan of care.~ This patient will be followed by myself or a community physician who will periodically review the plan of care. Home Meds Reported Medications Tramadol Hcl (TRAMADOL HCL) 50 Mg Tablet, 50 MG PO DAILY PRN for PAIN, TAB 0 Refills 04/08/19 Naproxen Sodium (ALEVE) 220 Mg Capsule, 220 MG PO BID for pain, CAP 03/24/19 Naproxen (NAPROXEN) 500 Mg Tablet, 1 TAB PO BID for pain, #60 TAB 1 Refill 03/24/19 Melatonin (MELATONIN) 3 Mg Tablet, 5 MG PO HS for sleep, TAB 03/24/19 Folic Acid (FOLIC ACID) 1 Mg Tablet, 800 MCG PO DAILY for supplement, TAB 03/24/19 Cholecalciferol (Vitamin D3) (D3-2000) 2,000 Unit Capsule, 4000 UNIT PO DAILY for supplment, CAP 03/24/19 Finasteride (FINASTERIDE) 5 Mg Tablet, 1 TAB PO DAILY for bladder, #30 TAB 11 Refills 03/24/19 Levothyroxine Sodium (LEVOTHYROXINE SODIUM) 100 Mcg Tablet, 1 TAB PO DAILY for hypothyroidism, #30 TAB 5 Refills 03/24/19 Allopurinol (ALLOPURINOL) 300 Mg Tablet, 1 TAB PO DAILY for gout, #30 TAB 5 Refills 03/24/19 Atorvastatin Calcium (ATORVASTATIN CALCIUM) 20 Mg Tablet, 1 TAB PO DAILY for cholesterol, #30 TAB 5 Refills 03/24/19 Glipizide (GLIPIZIDE ER) 2.5 Mg Tab.er.24, 1 TAB PO DAILY for diabieties, #30 TAB 5 Refills 03/24/19 Ramipril (RAMIPRIL) 10 Mg Capsule, 1 CAP PO DAILY for htn, #30 CAP 5 Refills 03/24/19 KATHE NOVAK III DO Apr 30, 2019 14:42
[2019-04-30] MEDS ORDERED: CLOP75TA PO ×2 (15:23→15:24)
--- NOTE | 2019-04-30 15:56 | PDOC ---
[facility] PROGRESS NOTE Chief Complaint Chief Complaint Chest pain Syncope Hypotension Hyperlipidemia Hypothyroidism BPH History of Present Illness History of Present Illness 04/30/19 Pt seen and examined Dunn to BSD VSS Resolving KY wtih 3 stents Hgb A1c 8.3 this morning DW at length 04/29/19 Pt seen and examined Acute KY Troponin trending up (0.503, 1.840, 3.547) Dunn to BSD Vitals/I&O Vitals/I&O: Vital Signs Date Time Temp Pulse Resp B/P (MAP) Pulse Ox O2 Delivery O2 Flow Rate FiO2 04/30/19 11:48 150/89 (109) 04/30/19 11:00 97.0 80 18 98 Room Air 1.0 97.0 I & O 04/29/19 04/29/19 04/30/19 14:59 22:59 06:59 Intake Total 600 ml 200 ml Output Total 1075 ml 700 ml Balance -475 ml -500 ml Physical Exam General: Alert, Oriented X3, Cooperative, No acute distress Heart: Regular rate, Normal S1, Normal S2, Other (SR/ST with PACs, 2/6 systolic murmur) Lungs: Clear Abdomen: Soft, No tenderness Extremities: No cyanosis, No edema, Normal pulses Skin: No breakdown, No significant lesion Labs Labs: Laboratory Tests Test 04/29/19 16:58 04/29/19 20:59 04/30/19 03:40 04/30/19 07:32 Glucose (Fingerstick) 203 mg/dL (70-99) 150 mg/dL (70-99) 159 mg/dL (70-99) White Blood Count 8.2 x10^3/uL (4.0-11.0) Red Blood Count 3.67 x10^6/uL (4.30-5.70) Hemoglobin 12.3 g/dL (13.0-17.5) Hematocrit 36.4 % (39.0-53.0) Mean Corpuscular Volume 99 fL (79-100) Mean Corpuscular Hemoglobin 34 pg (25-35) Mean Corpuscular Hemoglobin Concent 34 g/dL (31-37) Red Cell Distribution Width 14.9 % (11.5-14.5) Platelet Count 117 x10^3/uL (140-400) Neutrophils (%) (Auto) 73 % (31-73) Lymphocytes (%) (Auto) 17 % (24-48) Monocytes (%) (Auto) 7 % (0-9) Eosinophils (%) (Auto) 3 % (0-3) Basophils (%) (Auto) 0 % (0-3) Neutrophils # (Auto) 6.0 x10^3/uL (1.8-7.7) Lymphocytes # (Auto) 1.4 x10^3/uL (1.0-4.8) Monocytes # (Auto) 0.6 x10^3/uL (0.0-1.1) Eosinophils # (Auto) 0.2 x10^3/uL (0.0-0.7) Basophils # (Auto) 0.0 x10^3/uL (0.0-0.2) Sodium Level 142 mmol/L (136-145) Potassium Level 4.4 mmol/L (3.5-5.1) Chloride Level 108 mmol/L (98-107) Carbon Dioxide Level 24 mmol/L (21-32) Anion Gap 10 (6-14) Blood Urea Nitrogen 27 mg/dL (8-26) Creatinine 1.3 mg/dL (0.7-1.3) Estimated GFR (Cockcroft-Gault) 52.6 Glucose Level 153 mg/dL (70-99) Calcium Level 8.3 mg/dL (8.5-10.1) Test 04/30/19 10:58 Glucose (Fingerstick) 163 mg/dL (70-99) Review of Systems Review of Systems: Denies PENA Denies N/V/D Assessment and Plan Assessmemt and Plan Problems Medical Problems: (1) Acute diastolic congestive heart failure Status: Acute (2) Acute kidney injury superimposed on CKD Status: Acute (3) Atrial fibrillation Status: Acute (4) BPH (benign prostatic hyperplasia) Status: Chronic (5) Chest pain Status: Acute (6) Dehydration Status: Acute (7) DM2 (diabetes mellitus, type 2) Status: Chronic (8) HLD (hyperlipidemia) Status: Chronic (9) Hypotension Status: Acute (10) Hypothyroidism Status: Chronic (11) NSTEMI (non-ST elevated myocardial infarction) Status: Acute (12) Syncope and collapse Status: Acute 04/30/19 Assessment Chest pain Syncope Hypotension Hyperlipidemia Hypothyroidism BPH Plan Remove dunn to BSD Home meds PTOT DVT prophylaxis Encourage insulin PO Hope to discharge later today if okay with subspecialists Comment Review of Relevant I have reviewed the following items lali (where applicable) has been applied. Medications: Current Medications Medications (Trade) Dose Ordered Sig/Bertha Route PRN Reason Start Time Stop Time Status Last Admin Dose Admin Aspirin (Ecotrin) 325 mg DAILYWBKFT PO 04/30/19 08:00 04/30/19 08:30 Clopidogrel Bisulfate (Plavix) 75 mg DAILYWBKFT PO 04/30/19 08:00 04/30/19 08:30 Metoprolol Tartrate (Lopressor) 12.5 mg BID PO 04/29/19 21:00 04/30/19 08:32 KATHE NOVAK III DO Apr 30, 2019 15:56
[2019-04-30] MEDS ORDERED: METO25TA4 PO (16:04)
--- NOTE | 2019-04-30 17:04 | DS ---
DATE OF DISCHARGE: 04/30/2019 ADMISSION DIAGNOSES: Chest pain and syncope. DISCHARGE DIAGNOSIS: Resolving acute myocardial infarction with 3 stents placed. HOSPITAL COURSE: The patient is a pleasant 83-year-old male who had a syncopal episode and chest pain. He was admitted with elevated troponin, it maxed out at 3.54. He was taken to the laborer and sure enough needed 3 stents to the LAD, circumflex, and left posterior descending. Today, I saw him and examined. He is doing well. Heart tones are normal. Lungs are clear. Abdomen is soft. We planned to discharge home if okay with consultants. DISPOSITION: Home. ACTIVITY: As tolerated. DIET: Cardiac. MEDICATIONS: Please see the MRAD. TOTAL TIME: 32 minutes. KATHE NOVAK DO DR: CHINMAY/marsha JOB#: [id number] / [id number]
--- NOTE | 2019-04-30 17:32 | NUR ---
Discharge Note: SHAHAB GARCES Discharge instructions and discharge home medications reviewed with Patient and a copy given. All questions have been answered and understanding verbalized. Follow up instructions and prescriptions given to patient. The following instructions and handouts were given: Plavix, Metoprolol, Syncope, Chest pain, and post cardiac catheterization instructions Discontinued lines and drains: Peripheral IV intact. Patient discharged to Home w/services with Spouse via Wheelchair
== END 2019-04-30 17:34 | disposition home health service (06) | DRG 246 ==
LOC: ER 12:40 → 1 WEST ICU 14:02 → 2 NORTH 19:30
PROVIDERS: ADMIT Internal Medicine; ATTEND Internal Medicine
PROC: 027236Z Dilation of Coronary Artery, Three Arteries with Three Drug-eluting Intraluminal Devices, Percutaneous Approach (ICD-10-PCS; principal; 2019-04-29)
PROC: 4A023N7 Measurement of Cardiac Sampling and Pressure, Left Heart, Percutaneous Approach (ICD-10-PCS; 2019-04-29)
PROC: B2111ZZ Fluoroscopy of Multiple Coronary Arteries using Low Osmolar Contrast (ICD-10-PCS; 2019-04-29)
DX: I21.A1 Myocardial infarction type 2 (principal); I50.31 Acute diastolic (congestive) heart failure; N17.9 Acute kidney failure, unspecified; N18.5 Chronic kidney disease, stage 5; I13.2 Hypertensive heart and chronic kidney disease with heart failure and with stage 5 chronic kidney disease, or end stage renal disease; E11.22 Type 2 diabetes mellitus with diabetic chronic kidney disease; I95.9 Hypotension, unspecified; E03.9 Hypothyroidism, unspecified; E78.00 Pure hypercholesterolemia, unspecified; E78.5 Hyperlipidemia, unspecified; E86.0 Dehydration; G89.21 Chronic pain due to trauma; M19.90 Unspecified osteoarthritis, unspecified site; M10.9 Gout, unspecified; I25.10 Atherosclerotic heart disease of native coronary artery without angina pectoris; I48.91 Unspecified atrial fibrillation; N40.0 Benign prostatic hyperplasia without lower urinary tract symptoms; Z87.442 Personal history of urinary calculi; Z90.49 Acquired absence of other specified parts of digestive tract; Z79.899 Other long term (current) drug therapy; Z79.84 Long term (current) use of oral hypoglycemic drugs
CPT/HCPCS: 36415; 70450; 71045; 72125; 80048; 80053; 80061; 82550; 82962; 83036; 83690; 83735; 83880; 84443; 84484; 85025; 85610; 92928; 92929; 93005; 93306; 93458; 99152; 99153; C1725; C1769; C1874; C1887; C1892; J0583; J1644; J1650; J1815; J2250; J3010; J3490; J7030; Q9967; 99285-25; C1713

== ENCOUNTER → 2019-05-26 | Outpatient (CLI) | payer OTHER, BC, MEDICARE ==
[2019-04-30 11:48] VITALS: BP 150/89
[~2019-05-26] MED LIST changes: +ACET325T9 PO; +ASPI325T8 PO; +BUPIVACAINE MPF 0.25% 10 ML VIAL. ONE; +CLOP75TA PO; +METO25TA4 PO; +methylPREDNISolone ACETATE 40 MG/ML VIAL. ONE
--- NOTE | 2019-05-26 23:13 | PAIN ---
DATE OF SERVICE: 05/26/2019 PROGRESS NOTE FOR PAIN CLINIC DIAGNOSES: 1. Myofascial pain. 2. Thoracic degenerative disk disease. HISTORY OF PRESENT ILLNESS: The patient is an 83-year-old male who returns for followup status post trigger point injections, last seen on 04/08/2019. The patient did very well with about 90% improvement for several weeks after the injections for spasticity in the muscles in the upper and mid as well as the low back. The patient reports it is returning now. He has been bowling and he has been doing some wood working projects at home, which has increased the pain, and again somewhat more on the right than the left, but the patient reports lately the left side is worse than the right on the back and mid upper back near the shoulder. The patient reports the pain is an 8 on a scale of 10 at its worst in the past week, anywhere from 0 to 8 on average, and 0 at its least; better with sitting or lying down. The patient reports that he has been sleeping in a reclining chair. He tried to sleep in the bed and this made his back much worse. The patient reports the pain now is dull, constant, mid upper back, again at this time, left greater than right, but present bilaterally. The patient reports no new motor or sensory deficits, no new changes, difficulty with sleeping secondary to the pain. No specific injury or action he is aware of that has caused the pain to flare up again, but it is just getting worse with time and activity. PHYSICAL EXAMINATION: VITAL SIGNS: The patient's blood pressure is 124/73, pulse 83, respirations 16, temperature 98.1 degrees Fahrenheit, and weight is 221 pounds. GENERAL: The patient is awake, alert, oriented, appropriate, very pleasant demeanor. HEENT: Shows normocephalic, atraumatic. Extraocular movements are intact and symmetrical. Oral cavity; mucous membranes moist and pink. Dentition is intact. NECK: Shows anterior throat supple without palpable lymphadenopathy noted. Swallow reflex symmetrical. CHEST: Shows normal on inspection. Breath sounds are clear to auscultation bilaterally. HEART: Shows S1, S2 clear. No murmurs auscultated. ABDOMEN: Soft, nontender, nondistended. No palpable organomegaly is noted. No rebound or guarding demonstrated. BACK: Shows spine grossly in the midline with slight exaggeration of thoracic kyphosis. With palpation shows some moderate tenderness and very firm rope-like musculature in the trapezius musculature bilaterally in the inferior medial aspect of the trapezius; also in the rhomboid, worse on the left than the right, more tender with very firm rope-like musculature, it is very tender with palpation, left greater than right; and also into the thoracic paraspinous musculature and the lumbar paraspinous musculature on the superior aspect of the lumbar paraspinous muscles, more on the left than the right as well. Again, very firm rope-like musculature, very consistent with trigger point areas bilaterally, but worse on the left side. EXTREMITIES: The patient's lower extremities show deep tendon reflexes 1+ in the patellar and tendo-calcaneus tendons. Motor exam is strong with 5/5 dorsiflexion, extension and equal. Peripheral pulses are 1+ posterior tibia bilaterally. No peripheral edema is noted. Options were discussed with the patient. The patient's old chart was reviewed as his current medication regimen updated. Current review of systems updated today as well. We will proceed with trigger point injections of the identified musculature. Risks were again discussed including, but not limited to bleeding, infection, possibility of intravascular injection sequelae, spread of local anesthetic and numbness, pneumothorax, side effects of steroid medication and poor results regarding pain control. The patient understands and wished to proceed. The patient will return to the clinic in approximately 2 weeks for followup. He was counseled as to return appointment, activity level, and side effects to be aware of. DIAGNOSIS: Myofascial pain. PROCEDURE: Trigger point injections, bilateral trapezius, bilateral rhomboid musculature, bilateral thoracic paraspinous musculature, and bilateral lumbar paraspinous musculature under sterile prep and drape using local anesthetic. MEDICATION INJECTED: Total of 40 mg Depo-Medrol and total of 10 mL of 0.25% bupivacaine after negative aspiration at each injection site. CONDITION AT DISCHARGE: Stable. The patient tolerated the procedure well, had no complications. ALBERT JEAN-BAPTISTE MD DR: SHAW/marsha JOB#: [id number] / [id number]
== END ==
LOC: PNCL 09:43
PROVIDERS: ATTEND Anesthesiology
DX: M79.18 Myalgia, other site (principal); M51.34 Other intervertebral disc degeneration, thoracic region
CPT/HCPCS: 20553; J1030; J3490

== ENCOUNTER 2019-07-30 17:03 | Emergency (ER) | payer BC ==
[~2019-07-30 17:03] MED LIST changes: +0.9 % SODIUM CHLORIDE 10 ML DISP.SYRIN. ONE; -BUPIVACAINE MPF 0.25% 10 ML VIAL. ONE; +EPINEPHrine SYRINGE 1 MG/10 ML SYRINGE ONE; -MELA3TAB2 PO; +MELA3TAB56 PO; -methylPREDNISolone ACETATE 40 MG/ML VIAL. ONE
--- NOTE | 2019-07-30 18:08 | PHYS DOC ---
Past Medical History Past Medical History: Arthritis, High Cholesterol, Hypertension, Hypothyroid, Kidney Stone Additional Past Medical Histor: ENLARGED PROSTATE, GOUT, SPINAL STENOSIS, DIZZINESS Past Surgical History: Tonsillectomy, Other Additional Past Surgical Histo: CAROTID ARTERY, LITHOTRIPSY, BILA ELBOW Alcohol Use: Occasionally Drug Use: None Adult General Chief Complaint Chief Complaint: CPR/FULL ARREST HPI HPI Patient is a 83 year old who presents in cardiac arrest. Patient had a witnessed cardiac arrest 3 minutes prior to ED arrival. Patient was standing on top steps when he collapsed falling down 7 steps landing on the floor. Patient was initially alert but then lost consciousness. Patient's witnessed the fall and rest. She immediately contacted 911 and performed CPR. EMS states CPR was ongoing on their arrival. The patient was placed in a external cardiac compression device and transported to the emergency department while receiving supplemental oxygen via a bag valve mask. Patient was found initially to be in PEA and had rhythms of PEA without return of spontaneous circulation during transport to the emergency department. Multiple rounds of epinephrine were given. On ED arrival, the patient remains in PEA. Chest compressions were continued and repeat epinephrine was given. At 1709 cardiac ultrasound was performed which revealed asystole and the patient was pronounced. Family members questions were answered and the transaction processor was notified.[] Review of Systems Review of Systems Review of systems unattainable. Allergies Allergies Allergies Coded Allergies Type Severity Reaction Last Updated Verified No Known Drug Allergies 01/18/16 No Physical Exam Physical Exam Constitutional: She has 3, ongoing compressions.. [] HENT: Normocephalic, bilateral external ears normal, oropharynx moist, no oral exudates, nose normal. [] Eyes: Pupils, dilated.. [] Neck: Supple. [] Cardiovascular: Unable to appreciate any cardiac noises.] Lungs & Thorax: Respirations, assisted [id number], lungs clear.[] Abdomen: Bowel sounds normal. [] Skin: Pale [] Extremities: No deformities[] Neurologic:GCS 3. [] EKG EKG [] Radiology/Procedures Radiology/Procedures [] Course & Med Decision Making Course & Med Decision Making Pertinent Labs and Imaging studies reviewed. (See chart for details) [Pronounced at 1709.] Dragon Disclaimer Dragon Disclaimer This electronic medical record was generated, in whole or in part, using a voice recognition dictation system. Departure Departure Referrals: CASANDRA MARCELINO (PCP) KATHIE ZAVALA DO Jul 30, 2019 18:08
== END 2019-07-30 17:09 | disposition expired ==
LOC: ER 17:03
DX: I46.9 Cardiac arrest, cause unspecified (principal); E78.00 Pure hypercholesterolemia, unspecified; I10 Essential (primary) hypertension; E03.9 Hypothyroidism, unspecified
CPT/HCPCS: 92950; 99285; J0171